=== PATIENT | female | born 1955 ===

== ENCOUNTER 2018-08-05 14:07 | Outpatient (CLI) | payer OTHER | END 2018-08-05 14:11 | disposition home or self-care (01) | LOC: RAD 14:07 | DX: J16.8 Pneumonia due to other specified infectious organisms (principal) ==

== ENCOUNTER → 2022-04-10 | Outpatient (CLI) | payer OTHER | END | disposition home or self-care (01) | LOC: RAD 16:29 | PROVIDERS: ATTEND Specialist | DX: M54.50 Low back pain, unspecified (principal); M53.3 Sacrococcygeal disorders, not elsewhere classified; S32.2XXA Fracture of coccyx, initial encounter for closed fracture; S39.92XA Unspecified injury of lower back, initial encounter; W19.XXXA Unspecified fall, initial encounter; M81.0 Age-related osteoporosis without current pathological fracture ==